=== PATIENT | male | born 1975 | race Caucasian/White ===

== ENCOUNTER 2017-08-17 23:25 | Emergency (ER) | payer BC ==
[~2017-08-17] VITALS: Ht 180.3 cm; Wt 77.1 kg
[~2017-08-17 23:25] MED LIST: ACIDOPHILUS; METOPROLOL SUCC25 M2 PO; OMEPRAZOLE40 MG PO
--- OUTSIDE RECORDS SUMMARY | 2017-08-17 23:32 | External Medical Summary Rpt | CCD ---
Demographics Preferred Language Yoruba Marital Status Unknown Judaism Affiliation Unknown Race Unknown Ethnic Group Unknown Author Author , RUDY GRANT Address Unknown Phone Immunization No patient found.
--- OUTSIDE RECORDS SUMMARY | 2017-08-17 23:32 | External Medical Summary Rpt | CCD ---
Author Author [facility] Organization [facility] Address Unknown Phone Unavailable Purpose Continuity of Care Document - through 2016
--- OUTSIDE RECORDS SUMMARY | 2017-08-17 23:32 | External Medical Summary Rpt | CCD ---
Author Author , DANE GRANT Address Unknown Phone [email or web address] Purpose Continuity of Care Document - 04-14-2017 through 2016 Problems Code Diagnosis DOS Provider Status 789.06 I45.2 BIFASCICULA R BLOCK R07.9 CHEST PAIN, UNSPECIFIED
--- OUTSIDE RECORDS SUMMARY | 2017-08-17 23:32 | External Medical Summary Rpt | CCD ---
Author Author , DANE GRANT Address Unknown Phone [email or web address] Purpose Continuity of Care Document - 04-14-2017 through 2016 Problems Code Diagnosis DOS Provider Status 789.06 I45.2 BIFASCICULA R BLOCK R07.9 CHEST PAIN, UNSPECIFIED
--- OUTSIDE RECORDS SUMMARY | 2017-08-17 23:32 | External Medical Summary Rpt | CCD ---
Demographics Preferred Language Turkish Marital Status Unknown Buddhism Affiliation Unknown Race Unknown Ethnic Group Unknown Author Author , RUDY GRANT Address Unknown Phone Immunization No patient found.
--- OUTSIDE RECORDS SUMMARY | 2017-08-17 23:33 | External Medical Summary Rpt ---
Author Author RUDY Garibay, [employer] Organization [employer] Address Unknown Phone Unavailable Results Activated clotting time in Blood by Coagulation assay Observa Value Referen Units Interpr Notes Date tion ce etation Range Activated 74 - 125 SEC High No Apr 14 clotting alert informati 2017 9:36 time in on in AM Blood by source Coagulati data on assay Activated clotting time in Blood by Coagulation assay Observa Value Referen Units Interpr Notes Date tion ce etation Range Activated 74 - 125 SEC High No Apr 14 clotting alert informati 2016 9:24 time in on in AM Blood by source Coagulati data on assay CBC W Auto Differential panel in Blood Observa Value Referen Units Interpr Notes Date tion ce etation Range Basophils 0 - 0.2 K/MM3 Normal No Apr 14 informati 2016 7:40 [#/volume on in AM ] in source Blood by data Automated count Basophils 0.1 - 2.0 % Normal No Apr 14 informati 2017 7:40 leukocyte on in AM s in source Blood by data Automated count Eosinophi 0.0 - 0.4 K/mm3 Normal No Apr 14 ls informati 2016 7:40 [#/volume on in AM ] in source Blood by data Automated count Eosinophi 0.1 - % Normal No Apr 14 ls/100 12.0 informati 2016 7:40 leukocyte on in AM s in source Blood by data Automated count Granulocy 1.3 - 8.0 K/mm3 Normal No Apr 14 alexander informati 2016 7:40 [#/volume on in AM ] in source Blood by data Automated count Granulocy 37.0 - % Normal No Apr 14 alexander/100 80.0 informati 2017 7:40 leukocyte on in AM s in source Blood by data Automated count Hematocri 42.0 - % Normal No Apr 14 t [Volume 52.0 informati 2016 7:40 on in AM Fraction] source of Blood data Hemoglobi 14.1 - g/dL Normal No Apr 14 n 18.0 informati 2016 7:40 [Mass/vol on in AM ume] in source Blood data Lymphocyt 0.7 - 4.5 K/mm3 Normal No Apr 14 es informati 2017 7:40 [#/volume on in AM ] in source Unspecifi data ed specimen by Automated count Lymphocyt 10 - 50 % Normal No Apr 14 es informati 2017 7:40 [#/volume on in AM ] in source Unspecifi data ed specimen by Automated count Erythrocy 27 - 31.2 pg Normal No Apr 14 te mean informati 2017 7:40 corpuscul on in AM ar source hemoglobi data n [Entitic mass] Erythrocy 31.8 - g/dl Normal No Apr 14 te mean 35.4 informati 2017 7:40 corpuscul on in AM ar source hemoglobi data n concentra tion [Mass/vol ume] by Automated count Erythrocy 82.2 - fl Normal No Apr 14 te mean 97.8 informati 2016 7:40 corpuscul on in AM ar volume source [Entitic data volume] by Automated count Monocytes 0.1 - 1.0 K/mm3 Normal No Apr 14 informati 2017 7:40 [#/volume on in AM ] in source Blood by data Automated count Monocytes 1.7 - 9.3 % Normal No Apr 14 /100 informati 2017 7:40 leukocyte on in AM s in source Blood by data Automated count Platelet 7.4 - fl Low No Apr 14 mean 10.4 informati 2017 7:40 volume on in AM [Entitic source volume] data in Blood by Automated count Platelets 142 - 424 K/mm3 Normal No Apr 14 informati 2016 7:40 [#/volume on in AM ] in source Blood data Erythrocy 4.6 - 6.2 M/mm3 Normal No Apr 14 alexander informati 2017 7:40 [#/volume on in AM ] in source Amniotic data fluid Erythrocy 11.5 - % Normal No Apr 14 te 17.5 informati 2016 7:40 distribut on in AM ion width source [Entitic data volume] by Automated count Leukocyte 4.8 - K/MM3 Normal No Apr 14 s 10.8 informati 2016 7:40 [#/volume on in AM ] in source Blood data Basic metabolic panel in Blood Observa Value Referen Units Interpr Notes Date tion ce etation Range Urea 7 - 18 mg/dL Normal No Apr 14 nitrogen informati 2017 7:40 [Mass/vol on in AM ume] in source Serum or data Plasma Calcium 8.5 - mg/dL Normal No Apr 14 [Mass/vol 10.1 informati 2016 7:40 ume] in on in AM Serum or source Plasma data Chloride 98 - 107 mmoL/L Normal No Apr 14 [Moles/vo informati 2016 7:40 lume] in on in AM Serum or source Plasma data Carbon 21.0 - mmoL/L Normal No Apr 14 dioxide, 32.0 informati 2016 7:40 total on in AM [Moles/vo source lume] in data Serum or Plasma Creatinin 0.70 - mg/dL Normal No Apr 14 e 1.30 informati 2016 7:40 [Mass/vol on in AM ume] in source Serum or data Plasma Estimated >60 ML/MIN No REFERENCE Apr 14 informati RANGE: 2017 7:40 glomerula on in >60 AM r source ML/MIN/1. filtratio data 73 SQUARE n rate METERSIf (GF this patient is -A merican, then multiply theresult by 1.210. Glucose 74 - 106 mg/dL High No Apr 14 [Mass/vol informati 2016 7:40 ume] in on in AM Serum or source Plasma data Potassium 3.5 - 5.1 mmoL/L Normal No Apr 14 informati 2016 7:40 [Moles/vo on in AM lume] in source Serum or data Plasma Sodium 136 - 145 mmoL/L Normal No Apr 14 [Moles/vo informati 2016 7:40 lume] in on in AM Serum or source Plasma data
[2017-08-17] MEDS ORDERED: METOPROLOL SUCC50 M4 PO (23:38)
[2017-08-17] MEDS ORDERED: LISINOPRIL10 MG PO (23:38)
[2017-08-17] MEDS ORDERED: PRASUGREL HCL10 MG PO (23:39)
[2017-08-17] MEDS ORDERED: ATORVASTATIN CA40 MG PO (23:39)
[2017-08-18 00:35] VITALS: BP 143/80
== END 2017-08-18 00:36 | disposition left against medical advice (07) ==
LOC: ER 23:25
DX: Z53.21 Procedure and treatment not carried out due to patient leaving prior to being seen by health care provider (principal); R06.02 Shortness of breath